=== PATIENT | male | born 1980 | race African-American/Black ===

== ENCOUNTER 2020-02-17 09:19 | Emergency (ER) | payer BC ==
[2020-02-17] MEDS ORDERED: Sodium Chloride 0.9% 10 ML Syringe FLUSH PRN (09:35)
[2020-02-17] MEDS ORDERED: Sodium Chloride 0.9% 1,000 ML IV ONE ×2 (09:36→10:49)
[2020-02-17] MEDS ORDERED: Ondansetron 4 MG/2 ML SDV IVPUSH ONE (09:36)
[2020-02-17] MEDS ORDERED: GI Cocktail Oral Solution 30 ML PO ONE (09:36)
--- NOTE | 2020-02-17 09:52 | EDM.PDOC ---
ED HPI GENERAL MEDICAL PROBLEM - General Chief Complaint: Abdominal Pain Stated Complaint: ER Time Seen by Provider: 02/17/20 09:19 Source of Information: Reports: Patient History Limitations: Reports: No Limitations - History of Present Illness INITIAL COMMENTS - FREE TEXT/NARRATIVE: Patient comes in the emergency department with epigastric pain. Patient states he started having a preop epigastric pain that radiated to the back starting last night approximately 30 minutes after eating [employer]. He states that he has been nauseated throughout the entire course and has vomited 3 times over 12 hours. He also states that he has not had a bowel movement he feels like he could have one but unable to produce 1. He also states that he has sharp shooting discomfort and cramping sensations at times. He is having difficulty getting comfortable. patient also states he has not been able to have a bowel movement or does not feel he is able to pass gas. He denies any new sexual partners or concern with urinary Frequency, hesitancy, or burning with urination. He also denies the pain radiating to the jaw or shoulder, blurred vision, dizziness, SOB, or peripheral edema. Onset: Sudden Quality: Reports: Pressure, Sharp Severity: Severe Improves with: Reports: None Worsens with: Reports: None Associated Symptoms: Reports: Nausea/Vomiting Abdomen Pain Score (Numeric/FACES): 10 - Related Data Allergies Allergy/AdvReac Type Severity Reaction Status Date / Time No Known Allergies Allergy Verified 02/17/20 10:00 Home Meds: Home Meds Chlorthalidone 25 mg PO DAILY 02/17/20 [History] amLODIPine [Norvasc] 10 mg PO DAILY 02/17/20 [History] lisinopriL [Lisinopril] 40 mg PO DAILY 02/17/20 [History] ED ROS GENERAL - Review of Systems Review Of Systems: See Below Constitutional: Reports: No Symptoms HEENT: Reports: No Symptoms Respiratory: Reports: No Symptoms Cardiovascular: Reports: No Symptoms Endocrine: Reports: No Symptoms GI/Abdominal: Reports: Abdominal Pain, Decreased Appetite, Distension, Nausea : Reports: No Symptoms Musculoskeletal: Reports: No Symptoms Skin: Reports: No Symptoms Neurological: Reports: No Symptoms Psychiatric: Reports: No Symptoms Hematologic/Lymphatic: Reports: No Symptoms Immunologic: Reports: No Symptoms ED EXAM, GENERAL - Physical Exam Exam: See Below Exam Limited By: No Limitations General Appearance: Alert, WD/WN, No Apparent Distress Head: Atraumatic, Normocephalic Respiratory/Chest: No Respiratory Distress, Lungs Clear, Normal Breath Sounds, No Accessory Muscle Use, Chest Non-Tender Cardiovascular: Normal Peripheral Pulses, Regular Rate, Rhythm, No Edema GI/Abdominal: Distended, Rebound, Tender, Abnormal Bowel Sounds Back Exam: Normal Inspection, Full Range of Motion Extremities: Normal Inspection, Normal Range of Motion, Non-Tender, No Pedal Edema, Normal Capillary Refill Neurological: Alert, Oriented, CN II-XII Intact, Normal Gait Psychiatric: Normal Affect, Normal Mood Skin Exam: Warm, Dry, Intact, Normal Color Course - Vital Signs Last Recorded V/S: Last Vital Signs Temp 37.6 C 02/17/20 10:15 Pulse 75 02/17/20 10:15 Resp 18 02/17/20 10:15 BP 151/86 H 02/17/20 10:15 Pulse Ox 96 02/17/20 10:15 - Orders/Labs/Meds Orders: Active Orders 24 hr Category Date Time Status EKG Documentation Completion [RC] STAT Care 02/17/20 09:35 Active UA RFX LAURA AND CULT IF INDIC [URIN] Stat Lab 02/17/20 10:36 Ordered Sodium Chloride 0.9% [Normal Saline] 1,000 ml Med 02/17/20 10:49 Ordered IV ONETIME Sodium Chloride 0.9% [Saline Flush] Med 02/17/20 09:35 Active 10 ml FLUSH ASDIRECTED PRN Peripheral IV Insertion Adult [OM.PC] Stat Oth 02/17/20 09:35 Ordered Medication Orders Sodium Chloride (Normal Saline) 1,000 mls @ 100 mls/hr IV ONETIME ONE Stop: 02/17/20 20:48 Sodium Chloride (Saline Flush) 10 ml FLUSH ASDIRECTED PRN PRN Reason: Keep Vein Open Last Admin: 02/17/20 09:45 Dose: 10 ml Labs: Laboratory Tests 02/17/20 02/17/20 Range/Units 09:36 09:36 WBC 12.4 H (4.0-10.0) x10^3/uL RBC 5.23 (4.5-6.0) x10^6/uL Hgb 14.8 (14.0-18.0) g/dL Hct 43.7 (40.0-52.0) % MCV 83.6 (78.0-93.0) fL MCH 28.3 (26.0-32.0) pg MCHC 33.9 (32.0-36.0) g/dL RDW Coeff of Thomas 14.3 (10.0-15.0) % Plt Count 319 (130-400) x10^3/uL Neut % (Auto) 79.8 (50.0-80.0) % Lymph % (Auto) 12.3 L (25.0-50.0) % [place] % (Auto) 7.0 (2.0-11.0) % Eos % (Auto) 0.3 (0.0-4.0) % Baso % (Auto) 0.6 (0.2-1.2) % Sodium 143 (136-145) mmol/L Potassium 3.7 (3.5-5.1) mmol/L Chloride 105 (98-107) mmol/L Carbon Dioxide 27 (21-32) mmol/L Anion Gap 14.7 (10-20) mmol/L BUN 17 (7-18) mg/dL Creatinine 1.2 (0.70-1.30) mg/dL Est Cr Clr Drug Dosing 82.65 mL/min Estimated GFR (MDRD) > 60 Glucose 102 (74-106) mg/dL Calcium 8.9 (8.5-10.1) mg/dL Corrected Calcium 9.14 (8.5-10.1) mg/dL Total Bilirubin 0.5 (0.2-1.0) mg/dL AST 21 (15-37) U/L ALT 25 (16-63) U/L Alkaline Phosphatase 76 (46-116) U/L Troponin I < 0.017 (<=0.056) ng/mL Total Protein 6.9 (6.4-8.2) g/dL Albumin 3.7 (3.4-5.0) g/dL Globulin 3.2 Albumin/Globulin Ratio 1.16 Amylase 61 (25-115) U/L Lipase 130 (73-393) U/L Meds: Medications Generic Name Dose Route Start Last Admin Trade Name Freq PRN Reason Stop Dose Admin Sodium Chloride 1,000 mls @ 100 mls/hr 02/17/20 10:49 Normal Saline IV 02/17/20 20:48 ONETIME ONE Sodium Chloride 10 ml 02/17/20 09:35 02/17/20 09:45 Saline Flush FLUSH 10 ml ASDIRECTED PRN Administration Keep Vein Open Discontinued Medications Generic Name Dose Route Start Last Admin Trade Name Freq PRN Reason Stop Dose Admin Al Hydroxide/Mg Hydroxide 30 ml 02/17/20 09:36 02/17/20 09:43 Gi Cocktail PO 02/17/20 09:37 30 ml ONETIME ONE Administration Ceftriaxone Sodium 1 gm 02/17/20 10:27 02/17/20 10:36 Rocephin IVPUSH 02/17/20 10:28 1 gm ONETIME ONE Administration Hydromorphone HCl 1 mg 02/17/20 10:25 02/17/20 10:28 Dilaudid IVPUSH 02/17/20 10:26 1 mg ONETIME ONE Administration Hydromorphone HCl 0.5 mg 02/17/20 10:50 Dilaudid IV 02/17/20 10:51 ONETIME ONE Sodium Chloride 1,000 mls @ 1,000 mls/hr 02/17/20 09:36 02/17/20 09:42 Normal Saline IV 02/17/20 10:35 1,000 mls/hr ONETIME ONE Administration Ondansetron HCl 4 mg 02/17/20 09:36 02/17/20 09:42 Zofran IVPUSH 02/17/20 09:37 4 mg ONETIME ONE Administration Departure - Departure Time of Disposition: 10:45 Disposition: DC/Tfer to Acute Hospital 02 Condition: Good Clinical Impression: Abdominal pain Qualifiers: Abdominal location: epigastric Qualified Code(s): R10.13 - Epigastric pain Appendicitis Qualifiers: Appendicitis type: acute appendicitis Acute appendicitis type: unspecified acute appendicitis type Qualified Code(s): K35.80 - Unspecified acute appendicitis - Discharge Information *PRESCRIPTION DRUG MONITORING PROGRAM REVIEWED*: Not Applicable *COPY OF PRESCRIPTION DRUG MONITORING REPORT IN PATIENT FAITH: Not Applicable Referrals: Blanco Morgan MD [Primary Care Provider] - Forms: Interfacility Transfer EMTALA Sepsis Event Note - Focused Exam Vital Signs: Vital Signs Temp Pulse Resp BP Pulse Ox 02/17/20 10:15 37.6 C 75 18 151/86 H 96 02/17/20 09:20 37.3 C 87 20 159/85 H 100 Date Exam was Performed: 02/17/20 Time Exam was Performed: 10:51 - My Orders Last 24 Hours: My Active Orders 02/17/20 09:35 EKG Documentation Completion [RC] STAT Sodium Chloride 0.9% [Saline Flush] 10 ml FLUSH ASDIRECTED PRN Peripheral IV Insertion Adult [OM.PC] Stat 02/17/20 10:36 UA RFX LAURA AND CULT IF INDIC [URIN] Stat 02/17/20 10:49 Sodium Chloride 0.9% [Normal Saline] 1,000 ml IV ONETIME - Assessment/Plan Last 24 Hours: My Active Orders 02/17/20 09:35 EKG Documentation Completion [RC] STAT Sodium Chloride 0.9% [Saline Flush] 10 ml FLUSH ASDIRECTED PRN Peripheral IV Insertion Adult [OM.PC] Stat 02/17/20 10:36 UA RFX LAURA AND CULT IF INDIC [URIN] Stat 02/17/20 10:49 Sodium Chloride 0.9% [Normal Saline] 1,000 ml IV ONETIME Assessment:: 1. abdominal pain 2. Appendicitis Plan: 1. Labs completed in the ER. Results reviewed with the patient 2. CT scan completed in the ER. Results reviewed with the patient 3. IV initiated in the emergency department 4. IV fluids provided 1L bolus. then 100ml/hr 5. GI cocktail given- no relief 6. Zofran given in the ER to help with nausea-min relief 7. dilaudid 1mg IV given for pain- min relief given a second dose 0.5mg dilaudid IV 8. Rocephin 1gm IV given for acute appendicitis 9. UA completed in ER 10. Consultation completed with-Dr. Irene who has accepted acute care transfer of this patient for surgical intervention consultation and management needs 11. Patient will be transferred to a higher level of care needing further medical and/or surgical interventions 12. Patient and nursing staff was updated regarding the plan of care 13. Patient and family are agreeable to the above plan of care 14. All questions and concerns were addressed with the patient and family prior to discharge
[2020-02-17 10:10] LABS: CHLORIDE,CL 105 mmol/L (98-107); SODIUM,NA 143 mmol/L (136-145)
[2020-02-17 10:11] LABS: ANION GAP 14.7 mmol/L (10-20)
--- NOTE | 2020-02-17 10:24 | CT ---
[id number] CT/CT Abdomen Pelvis WO IV EXAM: ABDOMEN AND PELVIS CT WITHOUT CONTRAST INDICATION: Abdominal pain. COMPARISON: June 06, 2017. DISCUSSION: A single small noncalcified nodule is identified in each lower lobe. On the left the nodule is stable and on the right nodule is not seen on the prior study, but was not included in the [id number]. Stability of the left lower lobe nodule is compatible with a benign etiology. The appendix is enlarged and has surrounding inflammatory changes consistent with acute appendicitis. No free air, free fluid or abscess is currently identified. Unenhanced images of the liver, gallbladder, spleen, pancreas, adrenal glands, kidneys, small bowel and remaining large bowel are unremarkable. No adenopathy. The osseous structures are unremarkable. IMPRESSION: 1. Acute appendicitis. No abscess, free air free fluid is currently identified. Emory Bui MD 02/17/20 [id number] Thank you for allowing us to participate in the care of your patient.
[2020-02-17] MEDS ORDERED: HYDROmorphone 1 MG/ML Syringe IVPUSH ONE (10:25)
[2020-02-17] MEDS ORDERED: cefTRIAXone 1 GM Vial IVPUSH ONE (10:27)
[2020-02-17] MEDS ORDERED: HYDROmorphone 0.5 MG/0.5 ML Syringe IV ONE (10:50)
== END 2020-02-17 11:15 | disposition short-term general hospital (02) ==
LOC: VM.ED 09:19
DX: K35.80 Unspecified acute appendicitis (principal); Z79.899 Other long term (current) drug therapy
CPT/HCPCS: 74176; 80053; 81003; 82150; 83690; 84484; 85025; 93005; 96361; 96374; 96375; 99285-25; A9270-GY; J0696; J1170; J2405; J7030